=== PATIENT | male | born 2000 | race Caucasian/White ===

== ENCOUNTER 2022-08-06 01:05 | Emergency (ER) | payer SELFPAY ==
[2022-08-06] MEDS ORDERED: Lidocaine 2% with EPINEPHrine 1:100,000 20 ML MDV INJECT ONE (02:47)
[2022-08-06] MEDS ORDERED: Bupivacaine 0.5% 10 ML SDV INJECT ONE (02:48)
[2022-08-06] MEDS ORDERED: Diphtheria,Pertussis(Acell),Tetanus Vaccine 0.5 ML Syringe IM ONE (02:48)
== END 2022-08-06 03:00 | disposition home or self-care (01) ==
LOC: JD.ED 01:05
DX: S01.21XA Laceration without foreign body of nose, initial encounter (principal); Z86.16 Personal history of COVID-19; Z23 Encounter for immunization; Y04.0XXA Assault by unarmed brawl or fight, initial encounter
CPT/HCPCS: 12011; 90471; 90715; 99282; J3490

== ENCOUNTER 2023-10-27 09:55 | Emergency (ER) | payer SELFPAY ==
[2023-10-27] MEDS: Lidocaine 1% 10 ML MDV INJECT ONE (10:42)
== END 2023-10-27 10:45 | disposition home or self-care (01) ==
LOC: JD.ED 09:55
DX: S61.012A Laceration without foreign body of left thumb without damage to nail, initial encounter (principal); Z86.16 Personal history of COVID-19; W26.0XXA Contact with knife, initial encounter
CPT/HCPCS: 12001; 99282; J3490